=== PATIENT | male | born 1945 | race Two or more races ===

== ENCOUNTER 2020-10-27 09:18 | Emergency (ER) | payer MEDICARE, OTHER ==
[~2020-10-27] VITALS: Ht 170.2 cm; Wt 77.1 kg
[2020-10-27 09:52] VITALS: BP 149/83
[2020-10-27] MEDS ORDERED: TETRACAINE HCL 0.5% OPTH(EYE) SOLN 4ML EACHEYE ONE (10:45)
[2020-10-27] MEDS ORDERED: FLUORESCEIN SOD OPTH TEST STRIP OP ONE (10:45)
== END 2020-10-27 11:28 | disposition home or self-care (01) ==
LOC: ER 09:18
DX: S05.02XA Injury of conjunctiva and corneal abrasion without foreign body, left eye, initial encounter (principal); Z88.6 Allergy status to analgesic agent; W22.8XXA Striking against or struck by other objects, initial encounter; Y93.89 Activity, other specified; Y92.89 Other specified places as the place of occurrence of the external cause; Y99.8 Other external cause status